=== PATIENT | female | born 1980 | race Two or more races ===

== ENCOUNTER 2020-07-07 10:30 | Emergency (ER) | payer OTHER ==
[~2020-07-07] VITALS: Ht 172.7 cm; Wt 88.9 kg
[2020-07-07 11:06] VITALS: BP 144/81
[2020-07-07] MEDS ORDERED: KETOROLAC TROMETH 60MG/2ML VIAL IM ONE (11:30)
== END 2020-07-07 16:35 | disposition home or self-care (01) ==
LOC: ER 10:30
DX: M54.16 Radiculopathy, lumbar region (principal); Z88.2 Allergy status to sulfonamides
CPT/HCPCS: 96372; 99283; J1885